=== PATIENT | female | born 1980 | race Caucasian/White ===

== ENCOUNTER 2024-10-24 10:26 | Outpatient (CLI) | payer OTHER | END 2024-10-24 11:00 | disposition home or self-care (01) | LOC: SONOGRAMA 10:26 | PROVIDERS: ATTEND Pathology Anatomic Pathology & Clinical Pathology | DX: D34 Benign neoplasm of thyroid gland (principal); E07.89 Other specified disorders of thyroid; E04.2 Nontoxic multinodular goiter ==